=== PATIENT | female | born 1945 | race Caucasian/White ===

== ENCOUNTER 2019-06-23 14:57 | Outpatient (CLI) | payer MEDICARE ==
--- NOTE | 2019-06-23 17:37 | BD ---
DEXA BONE DENSITOMETRY: (Dual energy X-ray Absorptiometry) Date: 06/23/2019. HISTORY: A 73-year-old for age-related, postmenopausal, osteoporosis screening examination. Height: 66 inches. Weight: 169 pounds. Age of menopause: 55 years. COMPARISON: None available. FINDINGS: The bone mineral density (BMD) is given in grams per square centimeter (g/cm2): LUMBAR SPINE: BMD(g/cm2) T-score Z-score L1: 0.928 -0.6 1.6 L2: 1.048 0.2 2.6 L3: 1.001 -0.8 1.8 L4: 0.912 -1.4 1.3 Total: 0.970 -0.7 1.8 HIP: Femoral neck: 0.686 -1.5 0.7 Total: 0.862 -0.7 1.2 FRAX WHO Fracture Risk Assessment Tool: 10 Year Fracture Risk * Major osteoporotic fracture: 27% Hip fracture: 13% Reported Risk Factors: [place](), Neck BMD=0.686, BMI=27.3, previous fracture, and parental fracture. * Fracture probability is calculated for an untreated patient. Fracture probability may be lower if the patient has received treatment. IMPRESSION: 1) The mean bone mineral density of the lumbar spine is normal. Fracture risk is not increased. 2) The bone mineral density of the femoral neck is osteopenic. Fracture risk is increased. MANUEL Epps POS: PRASHANTH
--- NOTE | 2019-07-21 14:02 | MMO ---
Bilateral MAMMO Bilat Screen [facility]. CLINICAL HISTORY: Patient is 74 years old and is seen for screening. VIEWS: The views performed were: bilateral craniocaudal with tomosynthesis and bilateral mediolateral oblique with tomosynthesis. This study has been interpreted with the assistance of computer-aided detection. MAMMOGRAM FINDINGS: There are scattered fibroglandular densities. There are no suspicious masses, suspicious calcifications, or new areas of architectural distortion. IMPRESSION: THERE IS NO MAMMOGRAPHIC EVIDENCE OF MALIGNANCY. A ROUTINE FOLLOW-UP MAMMOGRAM IN 1 YEAR IS RECOMMENDED. THE RESULTS OF THIS EXAM WERE SENT TO THE PATIENT. ACR BI-RADS Category 1 - Negative MAMMOGRAPHY NOTE: 1. A negative mammogram report should not delay a biopsy if a dominant of clinically suspicious mass is present. 2. Approximately 10% to 15% of breast cancers are not detected by mammography. 3. Adenosis and dense breasts may obscure an underlying neoplasm. Reported by: ARUN HOLLIDAY MD Electonically Signed: [id number]
== END 2019-06-23 14:58 | disposition home or self-care (01) ==
LOC: BICMAMMO 14:57
PROVIDERS: ATTEND Physician Assistant
DX: Z12.31 Encounter for screening mammogram for malignant neoplasm of breast (principal); Z78.0 Asymptomatic menopausal state; M85.89 Other specified disorders of bone density and structure, multiple sites
CPT/HCPCS: 77063; 77067; 77080

== ENCOUNTER 2019-10-04 14:21 | Outpatient (CLI) | payer MEDICARE ==
--- NOTE | 2019-10-04 15:09 | ULT ---
Bilateral renal ultrasound CLINICAL INDICATION: Chronic kidney disease COMPARISON: None FINDINGS: Right kidney: There is no evidence of a renal mass, renal calculus, or hydronephrosis seen.The right kidney measures 8.6 cm x 4.4 cm. Left kidney: There is no evidence of a renal mass, renal calculus, or hydronephrosis.The left kidney measures 9 cm x 5.2 cm. Urinary bladder: Incompletely distended but otherwise grossly within normal limits. The right uretera l jet is seen on color flow evaluation. The left ureteral jet is not visualized on provided sonographic images. However, there is no hydronephrosis on the left. Multiple echogenic foci are seen within the urinary bladder most likely due to multiple calcified gra nulomata. IMPRESSION: No evidence of hydronephrosis.
== END 2019-10-04 14:22 | disposition home or self-care (01) ==
LOC: BICULT 14:21
PROVIDERS: ATTEND Internal Medicine Nephrology
DX: N18.3 Chronic kidney disease, stage 3 (moderate) (principal)
CPT/HCPCS: 76770